=== PATIENT | female | born 1975 | race Native Hawaiian/Other Pacific Islander ===

== ENCOUNTER → 2017-03-05 | Outpatient (CLI) | payer OTHER ==
[~2017-03-05] VITALS: Ht 160 cm; Wt 99.8 kg
[~2017-03-05] MED LIST: MULTIVITAMINS1 EAC7 PO
--- NOTE | ~2017-03-05 | O ---
[facility] [place] [address] OPERATIVE REPORT Name: PIEDAD EMANUEL Room #: REG [facility]#: [id number] Admission: 03/05/17 Attend Phys: Yesika Barber MD, Discharge: Date of : 79 Report #: [id number] THIS REPORT FOR: //name// CC: [facility] physician/PCP Yesika Barber DATE OF SERVICE: 03/05/2017 PREOPERATIVE DIAGNOSES: 1. Indwelling lap band. 2. Dysphagia. 3. Obstructive sleep apnea. 4. Morbid obesity with a body mass index of 38.55. 5. Gastroesophageal reflux disease. POSTOPERATIVE DIAGNOSES: 1. Indwelling lap band. 2. Dysphagia. 3. Obstructive sleep apnea. 4. Morbid obesity with a body mass index of 38.55. 5. Gastroesophageal reflux disease. 6. Malpositioned and slipping lap band. 7. Hiatal hernia. PROCEDURE PERFORMED: Thorough esophagogastroduodenoscopy (EGD). SURGEON: Yesika Barber MD GARDENING MANAGER: None. ANESTHESIA: Monitored anesthesia care. ESTIMATED BLOOD LOSS: None. COMPLICATIONS: None. SPECIMENS: None. INDICATIONS: The patient is a 41-year-old obese female who underwent placement of a lap band in the past and initially had significant weight loss. However, she has developed significant dysphagia as of late with weight regain of approximately 30 pounds over the past several months. The patient tolerates oral intake only a few times weekly and has significant gastroesophageal reflux disease that requires PPI therapy. The patient is undergoing EGD today to evaluate for the position of the lap band as well as any possible erosions or ulceration. [facility] [address] [place] [address] OPERATIVE REPORT Name: PIEDAD EMANUEL Room #: REG [facility].#: [id number] Admission: 03/05/17 Attend Phys: Yesika Barber MD, Discharge: Date of : 79 Report #: [id number] PROCEDURE: After explaining the risks, benefits and alternatives of the procedure and obtaining consent, the patient was brought to the endoscopy suite supine on the hospital bed. After conducting a thorough timeout procedure, verifying correct patient and procedure, the patient was positioned in the left lateral decubitus position with all pressure points appropriately padded and she was administered monitored anesthesia care. Once adequate anesthesia was obtained, the [employer] upper endoscope was used to intubate the oropharynx and was traversed down the esophagus. The esophagus was slightly tortuous down around the gastroesophageal juncture; however, once past the GE juncture, I encountered the extrinsic compression of the lap band, which appeared to have an abnormal tilt to it causing the esophagus to dive to the left. Ultimately, I was able to navigate the scope through into the gastric lumen where the pylorus was identified and intubated. Slow and careful withdrawal of the EGD scope from the second portion of the duodenum showed no evidence of duodenitis, gastritis, esophagitis, mass lesions, or ulcerations. A retroflexion view of the scope within the gastric lumen showed the extrinsic compression of the lap band that appeared to be exquisitely abnormally tilted. Upon allowing the patient to lighten from anesthesia with contractions of the abdomen, there was approximately 2-3 cm of craniocaudal mobility of the lap band itself with evidence of a small hiatal hernia cephalad to it. As the lap band itself appeared to be malpositioned with an abnormal tilt as well as having significant mobility to it, the scope was straightened out, the stomach was fully desufflated and slowly withdrawn into the distal esophagus where the procedure was then terminated. The scope was removed via the oropharynx, passed off the field. At the end of the procedure, all instrument, needle and sponge counts were correct. The patient tolerated the procedure without incident, was awakened in the endoscopy suite and transitioned to the recovery room in stable condition with no apparent complications. She will be evaluated for explantation of her lap band with conversion to a sleeve gastrectomy for adequate weight loss computer terminal operator. <ELECTRONICALLY SIGNED> By: Yesika Barber MD, FACS 03/06/17 [id number] Yesika Barber MD, FACS /nt
== END | disposition home or self-care (01) ==
LOC: OR 06:13
DX: Q39.8 Other congenital malformations of esophagus (principal); K21.9 Gastro-esophageal reflux disease without esophagitis; G47.33 Obstructive sleep apnea (adult) (pediatric); E66.01 Morbid (severe) obesity due to excess calories; Z68.38 Body mass index [BMI] 38.0-38.9, adult; K22.2 Esophageal obstruction; K44.9 Diaphragmatic hernia without obstruction or gangrene; D64.9 Anemia, unspecified
CPT/HCPCS: 62110; 62900